=== PATIENT | male | born 1980 | race Caucasian/White ===

== ENCOUNTER → 2016-12-29 18:47 | Emergency (ER) | payer OTHER ==
[~2016-12-29] VITALS: Ht 170.2 cm; Wt 99.2 kg
[~2016-12-29 18:47] MED LIST: AMPHETAMINE SAL20 MG PO; FLAGYL500 MG PO; FLONASE16 G1 NS; LOSARTAN POTAS100 MG PO; LOVENOX40 MG/0.4 SC; NORVASC10 MG PO; OXYCODONE HCL5 MG PO; ZOFRAN4 MG PO
[2016-12-29 18:53] VITALS: BP 154/106
== END | disposition left against medical advice (07) ==
LOC: EME 18:47
DX: R31.9 Hematuria, unspecified (principal); R10.30 Lower abdominal pain, unspecified; N50.812 Left testicular pain; Z87.442 Personal history of urinary calculi; Z53.21 Procedure and treatment not carried out due to patient leaving prior to being seen by health care provider

== ENCOUNTER 2017-08-12 00:59 | Emergency (ER) | payer OTHER ==
[~2017-08-12] VITALS: Ht 170.2 cm; Wt 96.0 kg
[2017-08-12 01:29] LABS: HEMATOCRIT 45.7 % (38.0-50.0); MCH 29.6 PG (29.0-34.0); MCHC 35.7 G/DL (30.0-36.0); MCV 83.1 FL (86-99); MEAN PLAT.VOLUME 10.4 uM^3 (9.0-12.4); PLATELET COUNT 146 K/uL (156-360); RBC DIS.WIDTH-CV 12.5 % (11.8-14.6); WHITE BLOOD COUNT 8.5 K/uL (4.1-10.2)
[2017-08-12 01:37] LABS: CHLORIDE 102 mEq/L (99-109); POTASSIUM 3.4 mEq/L (3.7-5.4); SODIUM 137 mEq/L (136-147)
[2017-08-12 01:39] LABS: GLUCOSE 124 mg/dL (70-99)
[2017-08-12 01:40] LABS: ANION GAP 12 MEQ/L (2-14)
[2017-08-12 01:42] LABS: GFR ESTIMATE (CALCULATED) > 59 mL/min/
[2017-08-12 01:43] LABS: UREA NITROGEN (BUN) 9 mg/dL (9-23)
[2017-08-12 01:50] LABS: TROP-I INTERPRETATION NEGATIVE; TROPONIN-I < 0.01 ng/mL (0.0-0.30)
[2017-08-12] MEDS ORDERED: NORCO 5/3251 TABLET PO (04:45)
[2017-08-12] MEDS ORDERED: TESSALON200 MG PO (05:04)
[2017-08-12 05:20] VITALS: BP 130/90
[2017-08-12 06:07] LABS: INTERNAL CONTROL VALID? YES; MONOSPOT (MONONUCLEOSIS SEROL) NEGATIVE
== END 2017-08-12 05:35 | disposition home or self-care (01) ==
LOC: EME 00:59
DX: M25.512 Pain in left shoulder (principal); M79.602 Pain in left arm; R42 Dizziness and giddiness; R11.0 Nausea; R05 Cough; I10 Essential (primary) hypertension; Z87.442 Personal history of urinary calculi
CPT/HCPCS: 73030; 80048; 84484; 85027; 86308; 93005; 99281; 99284